=== PATIENT | female | born 1960 | race Caucasian/White ===

== ENCOUNTER 2022-05-24 08:00 | Outpatient (CLI) | payer OTHER ==
--- NOTE | 2022-05-24 11:44 | XRAY Report ---
PROCEDURE: Hip 2 View LT INDICATIONS: HIP PAIN TECHNIQUE: 2 views of the hip were acquired. COMPARISON: None FINDINGS: Bones: No fractures or dislocations. No suspicious bony lesions. The visualized pelvic ring appear s intact. There is moderate bilateral degenerative hip joint space narrowing. No osteophytes. No ero sions. Soft tissues: No suspicious soft tissue calcifications or masses. IMPRESSION: Moderate arthritic changes within the hips bilaterally as above. Reviewed by: Rachel Brunner MD on 05/24/2022 11:42 AM PDT Approved by: Rachel Brunner MD on 05/24/2022 11:42 AM PDT Station ID: [id number]
== END 2022-05-24 23:59 | disposition home or self-care (01) ==
LOC: DI.WOS 08:00
PROVIDERS: ATTEND Physician Assistant Surgical
DX: M16.0 Bilateral primary osteoarthritis of hip (principal)